=== PATIENT | female | born 2000 | race Caucasian/White ===

== ENCOUNTER 2023-02-15 03:23 | Emergency (ER) | payer BC ==
[~2023-02-15] VITALS: Ht 167.6 cm; Wt 52.3 kg
[2023-02-15] MEDS ORDERED: MORPHINE 4 MG/ML 1ML VIAL IV ONE ×2 (08:05→09:30)
[2023-02-15] MEDS ORDERED: ONDANSETRON 4MG 2ML VIAL IV ONE (08:05)
[2023-02-15 08:34] LABS: BASO % 0.2 % (0.0-1.0); HEMOGLOBIN 12.9 g/dl (12.0-15.5); LYMPH % 7.2 % (24.0-44.0); MEAN CORPUSCULAR HEMOGLOBIN 28.5 pg (27.0-33.0); MEAN CORPUSCULAR HGB CONC 33.1 g/dl (32.0-36.5); MEAN CORPUSCULAR VOLUME 86.3 fl (80.0-96.0); MONO # 0.9 10^3/uL (0.0-0.8); MONO % 6.8 % (2.0-8.0); NEUTROPHILS # 11.8 10^3/uL (1.5-8.5); NEUTROPHILS % 85.4 % (36.0-66.0); PLATELET COUNT, AUTOMATED 305 10^3/uL (150-450); RED BLOOD COUNT 4.52 10^6/uL (4.00-5.40); WHITE BLOOD COUNT 13.8 10^3/uL (4.0-10.0)
[2023-02-15 08:40] LABS: ERYTHROCYTE SEDIMENTATION RATE 69 mm/hr (0-20)
[2023-02-15] MEDS ORDERED: AMPICILLIN SOD/SULBACTAM SOD 1.5 GM in D5W MINI-BAG PLUS 50 ML IV ONE (09:25)
[2023-02-15] MEDS ORDERED: ONDA-83 PO (10:25)
[2023-02-15] MEDS ORDERED: HYDR-3363 PO (10:25)
[2023-02-15] MEDS ORDERED: HOME MED LIST COMPLETE! XX SCH (10:25)
[2023-02-15 10:31] LABS: RSV AMPLIFICATION NEGATIVE (NEGATIVE)
[2023-02-15] MEDS ORDERED: fentaNYL 100 MCG/2 ML INJECTION IV PRN (10:35)
[2023-02-15] MEDS ORDERED: MEPERIDINE 25 MG/ML 1ML VIAL IV PRN (10:35)
[2023-02-15] MEDS ORDERED: ONDANSETRON 4MG 2ML VIAL IV PRN (10:35)
[2023-02-15] MEDS ORDERED: HYDROMORPHONE HCL 0.5 MG/ 0.5 ML SYRINGE IV PRN (10:35)
[2023-02-15] MEDS ORDERED: oxyCODONE 5MG TAB PO PRN (10:35)
[2023-02-15] MEDS ORDERED: BUPIVACAINE HCL 0.5% 30ML VIAL As Ordered ONE (10:58)
[2023-02-15] MEDS ORDERED: propofoL 200 MG/20 ML VIAL As Ordered ONE (11:50)
[2023-02-15] MEDS ORDERED: KETOROLAC 60MG 2ML VIAL As Ordered ONE (11:50)
[2023-02-15] MEDS ORDERED: MIDAZOLAM INJ 2MG/2ML VIAL As Ordered ONE (11:50)
[2023-02-15] MEDS ORDERED: fentaNYL 250 MCG/5 ML INJECTION As Ordered ONE (11:50)
[2023-02-15] MEDS ORDERED: ACETAMINOPHEN 1000MG 100ML IV BAG As Ordered ONE (11:50)
[2023-02-15] MEDS ORDERED: LIDOCAINE 2% 100MG/5ML SDV (FOR ANES.) As Ordered ONE (11:50)
[2023-02-15] MEDS ORDERED: ONDANSETRON 4MG 2ML VIAL As Ordered ONE (11:50)
[2023-02-15] MEDS ORDERED: PERCOCET 5MG/325MG TAB PO PRN (12:30)
[2023-02-15] MEDS ORDERED: LR 1,000 ML IV SCH (12:30)
[2023-02-15] MEDS ORDERED: IBUP-1022 PO (13:29)
[2023-02-15] MEDS ORDERED: OXYC1TAB23 PO (13:29)
[2023-02-15] MEDS ORDERED: AMOX875T2 PO (13:29)
[2023-02-15 13:31] VITALS: BP 119/78
== END 2023-02-15 09:37 | disposition short-term general hospital (02) ==
LOC: M ED 03:23
DX: N75.1 Abscess of Bartholin's gland (principal); Z79.2 Long term (current) use of antibiotics; Z79.83 Long term (current) use of bisphosphonates; Z79.899 Other long term (current) drug therapy
CPT/HCPCS: 56440; 80047; 84702; 85025; 85652; 86140; 87070; 87075; 87077; 87205; 87631; 88304; 96365; 96375; 99284; C1727; J0131; J0295; J1100; J1885; J2250; J2405; J3010; S0020